=== PATIENT | male | born 1950 | race Caucasian/White ===

== ENCOUNTER 2017-01-23 09:56 | Outpatient (CLI) | payer MEDICARE ==
--- OUTSIDE RECORDS SUMMARY | 2017-01-23 09:58 | XMS | Clinical Summary ---
:1950 Author Organization [facility] Address [address] [place] [address] Phone Care Team Providers Name Role Phone , Primary Care Provider Unavailable Allergies Active Allergy Reactions Severity Noted Date Comments Penicillins 10/04/2015 Current Medications Not on file Active Problems Not on file Social History Tobacco Use Types Packs/Day Years Used Date Never Assessed Sex Assigned at Date Recorded Not on file Last Filed Vital Signs Not on file Plan of Treatment Health Maintenance Due Date Last Done Comments COLONOSCOPY 11/03/2001 ZOSTER VACCINE 2011 PNEUMOCOCCAL POLYSACCHARIDE VACCINE AGE 65 AND OVER 11/03/2016 PNEUMOCOCCAL-13 11/03/2016 INFLUENZA VACCINE 11/19/2016 Results Not on filefrom Last 3 Months
--- NOTE | 2017-01-23 10:54 | ULT ---
BILATERAL RENAL ULTRASOUND: Date: 01/23/17 HISTORY: BPH. FINDINGS: The right kidney measures 13.0 cm in length and the left kidney measures 11.2 cm in length. There is a 2.6 cm cyst arising from the right kidney. There is a 1.0 cm shadowing echogenic focus in the lef t mid kidney consistent with calculus. No hydronephrosis is seen on either side. There is a suprapub ic catheter in the urinary bladder. IMPRESSION: 1. Right renal cyst. 2. Nonobstructing left renal calculus. POS: [facility]
== END 2017-01-23 09:57 | disposition home or self-care (01) ==
LOC: ULT 09:56
PROVIDERS: ATTEND Urology
DX: N40.1 Benign prostatic hyperplasia with lower urinary tract symptoms (principal); N20.0 Calculus of kidney; N28.1 Cyst of kidney, acquired
CPT/HCPCS: 76770

== ENCOUNTER 2017-07-08 15:14 | Outpatient (CLI) | payer MEDICARE ==
[2017-07-08 16:33] LABS: Bilirubin Negative (Negative); Blood, Urine Negative (Negative); Clarity CLEAR (Clear); Glucose, Urine (Dipstick) Negative (Negative); Leukocyte Small (Negative); Nitrite Negative (Negative); Protein, Urine (Dipstick) Negative (Neg-Trace); Specific Gravity, Urine 1.009 (1.002-1.036); Urobilinogen 0.2 mg/dL (0.2-1.0)
[2017-07-08 16:33] LABS: Hemoglobin 11.4 g/dL (14.0-18.0); Mean Corpuscular HGB CONC 31.9 g/dL (32.0-36.0); Mean Corpuscular Volume 87.7 fl (80.0-94.0); Mean Platelet Volume 7.3 fL (7.4-10.4); Platelet Count 247 thou/uL (130-400); RBC Distribution Width 15.4 % (11.5-14.5); Red Blood Cell (RBC) Count 4.07 mill/uL (4.70-6.10); White Blood Cell (WBC) Count 10.1 thou/uL (4.8-10.8)
[2017-07-08 16:36] LABS: Bacteria/HPF None Seen HPF (None Seen); Hyaline Casts/LPF 0-3 HYALINE CAST LPF (0-3 Hyaline); RBC/HPF 0-3 HPF (0-3); Squamous Epithelial 0-3 HPF (0-3)
--- NOTE | 2017-07-08 16:57 | RAD ---
TWO VIEWS OF THE CHEST: 07/08/17 COMPARISON: None. HISTORY: Preoperative patient. FINDINGS: Midline sternotomy wires and mediastinal clips are present. There is a single lead AICD inserted via the left subclavian approach. There is no pneumothorax, pleural fluid, focal consolidation, or alveol ar edema. The lungs are mildly hyperinflated which may signify air trapping. IMPRESSION: No lobar consolidation or alveolar edema. POS: [facility]
[2017-07-08 17:10] LABS: Chloride 96 mmol/L (98-107)
[2017-07-08 17:11] LABS: Calcium 9.6 mg/dL (7.8-10.44); Glucose 188 mg/dL (80-115); Sodium 135 mmol/L (136-145)
[2017-07-08 17:13] LABS: Anion Gap 14 mmol/L (10-20); Carbon Dioxide 29 mmol/L (23-31)
[2017-07-08 17:15] LABS: Calc. Creatinine Clearance 0 mL/min (70-130); Estimated GFR-MDRD 32
[2017-07-08 17:16] LABS: BUN (Urea Nitrogen) 46 mg/dL (8.4-25.7)
== END 2017-07-08 15:15 | disposition home or self-care (01) ==
LOC: LABBT 15:14
PROVIDERS: ATTEND Urology
DX: Z01.812 Encounter for preprocedural laboratory examination (principal); N40.1 Benign prostatic hyperplasia with lower urinary tract symptoms; R33.9 Retention of urine, unspecified
CPT/HCPCS: 71046; 80048; 81001; 85027; 87086

== ENCOUNTER 2017-07-15 06:11 | Day surgery (SDC) | payer MEDICARE ==
[2017-07-08 15:22] VITALS: BMI 34.3
[2017-07-15] MEDS ORDERED: Iothalamate Meglumine 60% 50 ML VIAL FS ONE (06:36)
[2017-07-15] MEDS ORDERED: Fentanyl 250 MCG/5 ML VIAL ONE (07:09)
[2017-07-15] MEDS ORDERED: Furosemide 20 MG/2 ML VIAL ONE (07:20)
[2017-07-15] MEDS ORDERED: B & O ONE (07:20)
[2017-07-15] MEDS ORDERED: Levofloxacin 500 mg/D5W 100 ml Premix Bag ONE (07:23)
[2017-07-15] MEDS ORDERED: Dexamethasone 10 MG/ML VIAL SLOW IVP SCH (07:30)
[2017-07-15] MEDS ORDERED: Fentanyl 100 MCG/2 ML VIAL ONE ×3 (09:19→09:52)
[2017-07-15] MEDS ORDERED: Morphine 4 MG/ML VIAL ONE ×2 (10:02→10:16)
--- NOTE | 2017-07-15 10:04 | OP ---
DATE OF PROCEDURE: 07/15/2017 PREOPERATIVE DIAGNOSES: Benign prostatic hypertrophy and retention. POSTOPERATIVE DIAGNOSES: Benign prostatic hypertrophy and retention. PROCEDURE: GreenLight laser vaporization of the prostate with enucleation of the middle lobe using 1 50,977 joules. No complications. SPECIMEN: Prostate. ESTIMATED BLOOD LOSS: Minimal. DRAINS: A 20-British 2-way. INDICATIONS: The patient is a 66-year-old male with previously managing his bladder with an SP tube. He had never had any definitive procedure to help his retention from his prostate standpoint. So w francesca reviewed the pros and cons of attempting this and trying to get him to void and ultimately removed the SP tube and he was setup for this. DESCRIPTION OF PROCEDURE: The patient was brought into the room by Anesthesia, laid on the table in supine position after receiving general anesthetic. His legs placed in lithotomy position and his pe rineum was prepped and draped in sterile fashion. The SP tube was clamped and then a 22.5 British cys toscope and a 30 degree lens were used to traverse the bladder. 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 Within the bladder, the ureteral orifices were identified and preserved throughout the case. Power level o f 80 was used at the bladder neck and a power level of 180 was used at the mid gland. The middle lob e was enucleated and then the bladder neck was taken down to the bladder floor posteriorly, taking do wn a small portion of the trigone ridge. When the scope was removed, a stream was noted and the scop e was put back in. All the chips were ensured to be extracted and on minimal filling, hemostasis was ensured using a power level of 80 at the prostatic bed to stop any oozing. Again with the bladder d ecompressed, no bleeding was noted, so the scope was removed at final time and a 20 British catheter w as placed to gravity. With the SP tube clamped, it was then coiled and secured to his abdomen and wo uld stay that way in the immediate postoperative period. The patient tolerated the procedure well an d was then awakened and transferred to PACU in stable condition.
== END 2017-07-15 12:00 | disposition home or self-care (01) ==
LOC: SDC 06:11
PROVIDERS: ATTEND Urology
PROC: 0VT08ZZ Resection of Prostate, Via Natural or Artificial Opening Endoscopic (ICD-10-PCS; principal; 2017-07-15)
DX: N40.1 Benign prostatic hyperplasia with lower urinary tract symptoms (principal); R33.9 Retention of urine, unspecified; E27.1 Primary adrenocortical insufficiency; F17.290 Nicotine dependence, other tobacco product, uncomplicated; Z88.0 Allergy status to penicillin; Z79.52 Long term (current) use of systemic steroids; Z79.4 Long term (current) use of insulin; Z79.82 Long term (current) use of aspirin; Z79.899 Other long term (current) drug therapy
CPT/HCPCS: 36416; 88305; 96374; J1100; J1940; J1956; J2270; J3010; Q9961

== ENCOUNTER 2017-12-23 12:44 | Outpatient (CLI) | payer MEDICARE | END 2017-12-23 12:45 | disposition home or self-care (01) | LOC: BICULT 12:44 | PROVIDERS: ATTEND Urology | DX: N11.9 Chronic tubulo-interstitial nephritis, unspecified (principal) | CPT/HCPCS: 76770 ==

== ENCOUNTER 2018-11-10 14:32 | Emergency (ER) | payer MEDICARE | END 2018-11-10 17:00 | disposition home or self-care (01) | LOC: ERS 14:32 | DX: M54.5 Low back pain (principal); Z79.899 Other long term (current) drug therapy | CPT/HCPCS: 99283 ==